=== PATIENT | male | born 1960 | race Caucasian/White ===

== ENCOUNTER 2019-09-14 16:11 | Emergency (ER) | payer BC ==
[~2019-09-14] VITALS: Ht 175.3 cm; Wt 127.3 kg
[2019-09-14 16:25] VITALS: BP 167/87; Ht 175.3 cm; Wt 127.3 kg
[2019-09-14] MEDS ORDERED: LISINOPRIL10 MG PO (16:26)
[2019-09-14] MEDS ORDERED: KEFLEX500 MG PO (18:18)
== END 2019-09-14 18:58 | disposition home or self-care (01) ==
LOC: D.ER 16:11
DX: S31.119A Laceration without foreign body of abdominal wall, unspecified quadrant without penetration into peritoneal cavity, initial encounter (principal); W26.0XXA Contact with knife, initial encounter; Y92.009 Unspecified place in unspecified non-institutional (private) residence as the place of occurrence of the external cause; I10 Essential (primary) hypertension